=== PATIENT | male | born 1990 | race Caucasian/White ===

== ENCOUNTER 2018-07-24 05:12 | Emergency (ER) | payer SELFPAY ==
[~2018-07-24] VITALS: Ht 167.6 cm; Wt 63.0 kg
[2018-07-24] MEDS ORDERED: LORAZEPAM 2MG/ML CPJ IM ONE ×2 (06:45→09:15)
[2018-07-24] MEDS ORDERED: KETOROLAC 60MG/2ML VIAL IM STA (06:45)
[2018-07-24 07:40] LABS: CLARITY URINE CLEAR (CLEAR); COLOR URINE YELLOW (YELLOW); KETONES URINE NEGATIVE (NEGATIVE); LEUKOCYTE ESTERASE URINE NEGATIVE (NEGATIVE); NITRITE URINE NEGATIVE (NEGATIVE); OCCULT BLOOD URINE NEGATIVE (NEGATIVE); PH URINE >=9.0 (4.5-8.0); PROTEIN URINE NEGATIVE (NEGATIVE); SPECIFIC GRAVITY URINE 1.014 (1.005-1.030); UROBILINOGEN URINE 0.2 E.U./dL (0.2-1.0)
[2018-07-24 07:54] LABS: *COCAINE SCREEN URINE NEGATIVE (NEGATIVE)
[2018-07-24 07:55] LABS: *AMPHETAMINES SCREEN URINE NEGATIVE (NEGATIVE); *BARBITURATES SCREEN URINE NEGATIVE (NEGATIVE); *BENZODIAZEPINES SCREEN URINE NEGATIVE (NEGATIVE); CANNABINOID URINE SCREEN NEGATIVE (NEGATIVE); METHADONE URINE SCREEN NEGATIVE (NEGATIVE); OPIATES URINE SCREEN NEGATIVE (NEGATIVE); PHENCYCLIDINE URINE SCREEN NEGATIVE (NEGATIVE)
[2018-07-24] MEDS ORDERED: LORAZEPAM 1MG TABLET PO ONE (09:00)
[2018-07-24 09:03] LABS: BASOPHILS % 0.3 % (0.0-2.0); EOSINOPHILS % 0.1 % (0.0-5.0); HEMATOCRIT. 40.4 % (42.0-52.0); HEMOGLOBIN. 13.4 g/dL (14.0-18.0); LYMPHOCYTES % 11.2 % (20.0-50.0); MEAN CORPUSCULAR HEMOGLOBIN 28.5 pg (28.0-32.0); MEAN CORPUSCULAR VOLUME 85.8 fL (80.0-94.0); MEAN PLATELET VOLUME 7.7 fl (7.4-10.4); MONOCYTES % 4.9 % (2.0-8.0); NEUTROPHILS % 83.5 % (40.0-76.0); PLATELET 265 x1000/uL (130-400); RED BLOOD CELL COUNT 4.71 mill/uL (4.7-6.1); RED CELL DISTRIBUTION WIDTH 15.4 % (11.6-14.6)
[2018-07-24 09:09] LABS: CHLORIDE 110 mEq/L (98-107)
[2018-07-24 09:13] LABS: ETHANOL BLOOD < 10 mg/dL
[2018-07-24 10:44] VITALS: BP 109/57
== END 2018-07-24 11:25 | disposition home or self-care (01) ==
LOC: ER 05:12
DX: F41.9 Anxiety disorder, unspecified (principal); M54.42 Lumbago with sciatica, left side; R03.0 Elevated blood-pressure reading, without diagnosis of hypertension; Z87.828 Personal history of other (healed) physical injury and trauma
CPT/HCPCS: 36415; 72100; 80048; 80305; 80307; 80320; 80329; 81003; 85025; 96372; 99284; J1885; J2060; G0480